=== PATIENT | male | born 1985 | race Caucasian/White ===

== ENCOUNTER 2017-05-18 02:36 | Emergency (ER) | payer SELFPAY ==
[~2017-05-18] VITALS: Ht 177.8 cm; Wt 76.5 kg
[~2017-05-18 02:36] MED LIST: DICY10CA60 PO; ONDA4TAB35 PO
[2017-05-18 02:41] VITALS: Ht 177.8 cm; Wt 76.5 kg
[2017-05-18] MEDS ORDERED: ONDANSETRON 4 MG INJ IV STA (05:46)
--- NOTE | 2017-05-18 05:51 | ERD ---
ER Documentation Chief Complaint Date/Time DATE: 05/18/17 TIME: 05:47 Chief Complaint etoh intoxication, drinking beers the whole day HPI This 32-year-old male is brought in by his for alcohol intoxication is been drinking beer today. He is aware that he was too drunk that she was having trouble caring for him at home. No history of trauma. History is mostly taken from the . Patient is able to answer questions but is unreliable because he is currently intoxicated. No other complaints. denies any recent fever chills. ROS All systems reviewed and are negative except as per history of present illness. Medications Home Meds Active Scripts Ondansetron Hcl* (Zofran* ODT) 4 mg -ODT Tab.disper, 4 MG PO Q4H Y for NAUSEA AND OR VOMITING, #30 TAB Prov:RUI MCGOWAN MD 02/04/16 Dicyclomine Hcl* (Bentyl*) 10 Mg Capsule, 10 MG PO QID, #30 CAP Prov:RUI MCGOWAN MD 02/04/16 Allergies Allergies: Coded Allergies: No Known Allergy (Unverified , 02/04/16) PMhx/Soc Medical and Surgical Hx: pt denies Medical Hx, pt denies Surgical Hx History of Surgery: No Anesthesia Reaction: No Hx Neurological Disorder: No Hx Respiratory Disorders: No Hx Cardiac Disorders: No Hx Psychiatric Problems: No Hx Miscellaneous Medical Probl: No Hx Alcohol Use: Yes Hx Substance Use: No Hx Tobacco Use: No Smoking Status: Never smoker Physical Exam Vitals Vital Signs Date Time Temp Pulse Resp B/P Pulse Ox O2 Delivery O2 Flow Rate FiO2 05/18/17 02:41 98.3 108 20 125/83 98 Physical Exam Const: [] No acute distress, appears intoxicated Head: Atraumatic Eyes: Normal Conjunctiva ENT: Normal External Ears, Nose and Mouth. Neck: Full range of motion..~ No meningismus. Resp: Clear to auscultation bilaterally Cardio: Regular rate and rhythm, no murmurs Abd: Soft, non tender, non distended. Normal bowel sounds Skin: No petechiae or rashes Back: No midline or flank tenderness Ext: No cyanosis, or edema Neur: Awake and alert and oriented 3, mild slurred speech, cranial nerves II through XII grossly intact Psych: Normal Mood and Affect Procedures/MDM Alcohol intoxication with no signs of trauma. Patient was observed in ER for hours until his was taking him home he was clinically sober. Was given a single Zofran ODT because he complained of some nausea although had no vomiting. He has no signs of trauma. Is stable vital signs and is ambulating normally prior to discharge. Normal neurological exam and no signs of any other medical pathology. Explained the importance of alcohol cessation and how to do so safely. Discharging with primary care follow-up in the next 2-3 days and return precautions. No signs of impending DTs. Departure Diagnosis: Primary Impression: Alcoholic intoxication Condition: Stable Patient Instructions: Alcohol Intoxication Referrals: [facility] YOU HAVE RECEIVED A MEDICAL SCREENING EXAM AND THE RESULTS INDICATE THAT YOU DO NOT HAVE A CONDITION THAT REQUIRES URGENT TREATMENT IN THE EMERGENCY DEPARTMENT. FURTHER EVALUATION AND TREATMENT OF YOUR CONDITION CAN WAIT UNTIL YOU ARE SEEN IN YOUR DOCTORS OFFICE WITHIN THE NEXT 1-2 DAYS. IT IS YOUR RESPONSIBILITY TO MAKE AN APPOINTMENT FOR FOLOW-UP CARE. IF YOU HAVE A PRIMARY DOCTOR --you should call your primary doctor and schedule an appointment IF YOU DO NOT HAVE A PRIMARY DOCTOR YOU CAN CALL OUR PHYSICIAN REFERRAL HOTLINE AT IF YOU CAN NOT AFFORD TO SEE A PHYSICIAN YOU CAN CHOSE FROM THE FOLLOWING [facility] [id number] [facility]. [facility] [address] [facility]. [facility] [address] [facility]. [employer] [address] [facility] [address] [facility]. [employer] [address] Additional Instructions: Llame al doctor MAANA y dixie dmitry MEHRDAD PARA DENTRO DE 2-3 JEWELL.Dgale a la secretaria que nosotros le instruimos hacer esta mehrdad.Avise o llame si rosenthal condicin se empeora antes de la mehrdad. Regresa aqui si peor o no mejor. [place] BLOOM 25, 2017 05:51
[2017-05-18 06:00] VITALS: BP 120/79; PULSE 98; RESP 20; TEMP 98.3
== END 2017-05-18 06:00 | disposition home or self-care (01) ==
LOC: E/R 02:36
DX: F10.120 Alcohol abuse with intoxication, uncomplicated (principal)
CPT/HCPCS: 99282

== ENCOUNTER 2018-01-08 23:55 | Emergency (ER) | END 2018-01-09 03:12 | disposition left against medical advice (07) ==